=== PATIENT | male | born 1995 | race Native Hawaiian/Other Pacific Islander ===

== ENCOUNTER 2018-08-10 14:56 | Emergency (ER) | payer SELFPAY ==
[2018-08-10 15:00] VITALS: BP 117/71; PULSE 69; RESP 20; TEMP 36.6; O2SAT 97
--- NOTE | 2018-08-10 17:14 | ED.EYEPROB ---
HPI - Eye Problem General Chief complaint: Eye Problems Stated complaint: LEFT EYE INFECTION Time Seen by Provider: 08/10/18 16:51 Source: patient Mode of arrival: ambulatory Limitations: no limitations History of Present Illness HPI Narrative: Patient is here because he states he believes he has a stye in his left eye. He states he has noticed an area of swelling along the edge of his eyelid for the last several days, and he would like to know what he can do to get rid of it. He has not been doing any home treatments. Patient does not wear contacts or glasses. He has not had any other eye symptoms or visual changes. No trauma to the eye. No other complaints at this time. No recent infections of any kind. Related Data Allergies Allergy/AdvReac Type Severity Reaction Status Date / Time No Known Allergies Allergy Uncoded 12/31/17 12:50 Review of Systems Review of Systems All systems reviewed & are unremarkable except as noted in HPI and below Constitutional Denies chills, Denies fever(s), Denies lethargy and Denies weakness Eyes Denies change in vision, Denies eye discharge, Denies irritation and Denies loss of vision Comments: eyelid swelling, left eye ENT Ears, Nose, Mouth, and Throat: Denies change in voice, Denies neck pain and Denies sore throat Cardiovascular Denies chest pain, Denies irregular heart rhythm, Denies lightheadedness, Denies palpitations, Denies dyspnea, Denies dyspnea on exertion and Denies orthopnea Respiratory Denies cough, Denies dyspnea, Denies dyspnea on exertion and Denies wheezing Gastrointestinal Gastrointestinal: Denies abdominal pain, Denies change in bowel habits, Denies diarrhea, Denies nausea and Denies vomiting Genitourinary Denies hematuria, Denies flank pain, Denies urinary incontinence and Denies urinary urgency Musculoskeletal Denies neck pain Integumentary/Breasts Denies pruritus, Denies erythema, Denies rash and Denies wounds Neurologic Denies confusion, Denies loss of vision and Denies weakness Psychiatric Denies anxiety, Denies confusion, Denies depression, Denies homicidal ideation and Denies suicidal ideation Endocrine Denies palpitations Hematologic/Lymphatic Denies easy bruising Allergic/Immunologic Denies wheezing PFSH Medical History Healthy adult (Acute) Surgical History No pertinent past surgical history (Acute) Social History Smoking Status: Unknown if ever smoked Exam Initial Vital Signs Initial Vital Signs: Vital Signs Temperature 97.9 F 08/10/18 15:00 Pulse Rate 69 08/10/18 15:00 Respiratory Rate 20 08/10/18 15:00 Blood Pressure 117/71 08/10/18 15:00 Pulse Oximetry 97 08/10/18 15:00 Eyes General: appearance normal, both eyes and all related structures Eyelids: eyelid abnormality ( patient has a discrete area of swelling on the medial right lower eyelid on the mucosal side. A tiny pustular head is noted to be centrally located in the enlarged area. The enlarged area is approximately 3 mm in diameter. No drainage is noted. Area is slightly erythematous.) left lower eyelid Conjunctivae: conjunctivae normal Sclera: sclerae normal Pupils: PERRL EOM: EOM intact bilaterally Course Course Narrative: I did discuss with the patient that the most effective treatment is to hot pack the area and gently massaged. Patient's girlfriend is with him and states her sister has had a lot of styes, and she can help the patient with home management. Patient is stable for discharge home. We have discussed the usual indications for return or follow-up. Vital Signs - 8 hr 08/10/18 15:00 Temperature 97.9 F Pulse Rate 69 Respiratory Rate 20 Blood Pressure 117/71 Pulse Oximetry 97 MDM - Eye Problem Medical Records Attestation: I reviewed the patient's medical records. Discharge Plan Departure Patient Disposition: Home Clinical Impression: [facility] Discharge Date/Time: 08/10/18 17:36 Interventions: ED Discharge Assessment Last Done: 08/10/18 17:36 Instructions: DI for [facility] Referrals: Jean Lind MD [Physician] - (Follow up if not better in 2 weeks.)
[2018-08-10 17:36] VITALS: PULSE 77; RESP 15; O2SAT 100
== END 2018-08-10 17:36 | disposition home or self-care (01) ==
PROVIDERS: Emergency Provider Emergency Medicine
DX: H00.016 Hordeolum externum left eye, unspecified eyelid (principal)
CPT/HCPCS: 99282